=== PATIENT | male | born 1990 | race Caucasian/White ===

== ENCOUNTER 2019-02-26 13:15 | Emergency (ER) | payer OTHER ==
[~2019-02-26] VITALS: Ht 177.8 cm; Wt 93.0 kg
[2019-02-26 13:25] VITALS: BP 112/69
[2019-02-26 13:40] VITALS: BP 112/69
[2019-02-26 13:41] VITALS: BP 112/69
[2019-02-26] MEDS ORDERED: LIDOCAINE 1% VIAL ONE (13:45)
[2019-02-26] MEDS ORDERED: ADACEL VIAL IM ONE ×2 (13:46→15:00)
--- NOTE | 2019-02-26 13:49 | ER.PDOC ---
General Chief Complaint: Head, Face, Neck Trauma Stated Complaint: LACERATION ON FACE Time seen by MD: 13:45 Source: patient Exam Limitations: no limitations History of Present Illness Initial Comments was skinning a deer when he accidentally cut his face with the knife that had gone through the deer Occurred: just prior to arrival Where: home Severity: mild Context: incision Associated Symptoms: No Loss of Consciousness Remembers: injury Allergies: Coded Allergies: No Known Allergies (Unverified , 02/26/19) Past Medical History Medical History: no pertinent history Surgical History: no surgical history Social History Smoking: non-smoker Alcohol Use: none Drug Use: none Review of Systems Constitutional: no symptoms reported Eyes: no symptoms reported Ears: no symptoms reported Nose: no symptoms reported Mouth: no symptoms reported Throat: no symptoms reported Respiratory: no symptoms reported Cardiovascular: no symptoms reported Gastrointestinal: no symptoms reported Skin: see HPI All Other Systems: Reviewed and Negative Physical Exam General Appearance: alert, no distress Head: non-tender, no swelling 1 - Eyes: lids nml, conjunctivae nml ENT: nml external exam, pharynx nml, no injury to teeth, no injury lips, laceration (2 cm lac right face) Neuro/Psych: oriented x 3 Respiratory: chest non-tender, no resp distress, breath sounds nml CVS: heart sounds nml, reg. rate & rhythm Abdomen: non-tender ED LACERATION WOUND REPAIR # of Wounds/Lacerations Presen: 2 Wound Length (cm): 2 Distal NVT: neuro intact Anesthesia type: local Anesthesia: 1% Lidocaine Wound's Depth, Shape: superficial, linear Wound Explored: clean Wound Repaired With: sutures Suture Size/Type: 5:0, prolene Suture Style: interupted Number of Sutures: 5 Results/Orders Results/Orders Orders - CLAUDINE FERNANDES DO Tetanus-Diphtheria Toxoids/Pf (Tenivac S (02/26/19 14:00) Lidocaine Hcl (Lidocaine 1% Vial) (02/26/19 13:45) Diph,Pertuss(Acell),Tet Vac/Pf (Adacel V (02/26/19 13:46) Vital Signs Date Time Temp Pulse Resp B/P (MAP) Pulse Ox O2 Delivery O2 Flow Rate FiO2 02/26/19 13:41 97.7 88 17 112/69 (83) 97 Room Air 02/26/19 13:40 17 02/26/19 13:40 97.7 88 17 02/26/19 13:25 97.7 88 17 97 Room Air Departure Time of Disposition: 14:31 Disposition: 01 HOME, SELF-CARE Impression: Primary Impression: Facial laceration Condition: Improved Patient Instructions: Facial Laceration Referrals: PCP,UNKNOWN (PCP) PRIMARY CARE PROVIDER Additional Instructions: Return to ER if any signs of infection (red, painful, oozing) or for any other concerns. Sutures out in 5 days. Duration or Time Spent with Pa: 1 hour Return to Work/School Can a patient return to work?: Yes Problem Qualifiers Primary Impression: Facial laceration Encounter type: initial encounter Qualified Codes: S01.81XA - Laceration without foreign body of other part of head, initial encounter CLAUDINE FERNANDES DO Feb 26, 2019 13:49
[2019-02-26] MEDS ORDERED: TENIVAC SYRINGE IM ONE (14:00)
[2019-02-26] MEDS ORDERED: TRIPLE ANTIBIOTIC OINTMENT TP STA (14:31)
[2019-02-26] MEDS ORDERED: TRIPLE ANTIBIOTIC OINTMENT TP ONE (14:31)
== END 2019-02-26 14:43 | disposition home or self-care (01) ==
LOC: ER 13:15
DX: S01.81XA Laceration without foreign body of other part of head, initial encounter (principal); W26.0XXA Contact with knife, initial encounter; Y93.89 Activity, other specified; Y92.098 Other place in other non-institutional residence as the place of occurrence of the external cause; Y99.8 Other external cause status
CPT/HCPCS: 12011; 90471; 90715; 99283; J2001; 12001